=== PATIENT | female | born 1985 | race Caucasian/White ===

== ENCOUNTER 2017-09-23 17:29 | Emergency (ER) | payer OTHER ==
[~2017-09-23 17:29] MED LIST: Z.0.NO CURRENT MEDS
--- NOTE | 2017-09-23 19:37 | PD ---
HPI Chief Complaint Vaginal bleeding Date Seen: Sep 23, 2017 Time Seen: 18:25 Travel History International Travel<30 Days: No Contact w/Intl Traveler<30Days: No Known Affected Area: No History of Present Illness HPI This patient is a 32-year-old white female previous 2 now at 29 weeks gestation presents with recurrent vaginal bleeding. Patient noted red bleeding today less than a period . She has had this happen past and had an ultrasound that showed some was not in the way was there is no obvious cause . heart rate tracing is reactive and she is not ginger Weeks Gestation: 29 Para: 2 : 3 Last Menstrual Period: Sep 23, 2017 History Obstetric History Obstetric History Patient had 2 C-sections term with breech and the second section was just done because she had a previous , patient is motivated like to try a and this was discussed with pt Past Surgical History Narrative Surgical 2 C-sections Social History Alcohol Use: No Tobacco Use: No Substance Abuse: No Allergies-Medications (Allergen,Severity, Reaction): Coded Allergies: Sulfa (Sulfonamide Antibiotics) (Unverified Allergy, Severe, 02/24/17) Home Meds Reported Medications Miscellaneous (No Current Meds) Misc 03/28/12 Review of Systems General / Constitutional: No: Fever, Weight Gain, Chills, Other Eyes: No: Diploplia, Blurred Vision, Visual changes, Pain, Photophobia HENT: No: Headaches, Vertigo, Lightheadedness Cardiovascular: No: Irregular Rhythm, Chest Pain or Discomfort, Palpitations, Tachycardia, Syncope, Varicosities, Edema, Cyanosis Respiratory: No: Cough, Short of Breath, Other Gastrointestinal: No: Nausea, Vomiting, Diarrhea Genitourinary: Vaginal Bleeding, No: Decreased Urinary Output, Oliguria Musculoskeletal: No: Limited ROM, Weakness, Cramping, Edema, Pain Skin: No Rash, No Itching, No Dryness, No Lumps, No Change in Pigmentation, No Change in Nails, No Alopecia, No Lesions Neurologic: No: Weakness, Dizziness, Syncope, Focal Abnormalities, Coordination Problem, Headache, Slurred Speech, Seizures Psychiatric: No: Depression, Suicidal Ideations, Homicidal Ideation Endocrine: No: Heat Intolerance, Cold Intolerance, Polydipsia, Polyuria, Other Physical Exam Narrative GENERAL: Well-nourished, well-developed patient. SKIN: Warm and dry. HEAD: Normocephalic and atraumatic. EYES: No scleral icterus. No injection or drainage. ENT: No nasal drainage noted. Mucous membranes pink. Airway patent. NECK: Supple, trachea midline. No JVD. CARDIOVASCULAR: Regular rate and rhythm without murmurs, gallops, or rubs. RESPIRATORY: Breath sounds equal bilaterally. No accessory muscle use. BREASTS: Bilateral exam showed no masses , no retractions, no nipple discharge. ABDOMEN/GI: Abdomen soft, non-tender, bowel sounds present, no rebound, no guarding Gravid to [-29] weeks size Fundal Height: [29-] GENITOURINARY: External Genitalia: intact and normal in appearance Speculum exam done-no active bleeding seen no red blood seen however there is a moderate amount of old brown blood in the vagina Cervix: [-closed] Dilatation: [closed-] Effacement: [thick-] Station: [-3] Presentation: [transverse back down see on US -] Membranes: [intact ] Uterine Contractions: [-none] FHT's: Category: [-1] Baseline: [-133] Reactive: [-R] Variability: [mod-] Decels: [none-] EXTREMITIES: No cyanosis or edema. BACK: Nontender without obvious deformity. No CVA tenderness. NEUROLOGICAL: Awake and alert. Motor and sensory grossly within normal limits. Five out of 5 muscle strength in all muscle groups. Normal speech. Data Data Labs Bedside ultrasound was done- placenta is on the right lateral side of the uterus is not a placenta previa , baby is in a back down transverse lie to the maternal right , there is normal amniotic fluid volume, normal cardiac motion MDM Interpretation(s) 32-year-old white female 29 weeks 3 P2 previous section 2 would like to this baby if possible., Who presents with vaginal bleeding recurrent, she does not have a lot of bleeding when she has episodes that it is a little less than a menstrual flow starts red in terms to brown old blood, ultrasound ruled out previa several times, no obvious abruption signs exist, heart rate tracing is reactive baby is active , there are no contractions Plan Plan for patient to be at bed rest while having any significant bleeding, to return to us for significant increase in bleeding or continued vaginal bleeding. , She is to avoid intercourse at this time she had intercourse 2 days ago started bleeding shortly after so we recommend her not having IC,. she is to initiate care here at this time she just relocated from [place] [facility] there is good to be getting her records sent down here so she can, she was [facility] Diagnosis Diagnosis: Primary Impression: Vaginal bleeding during Disposition: 01 DISCHARGE HOME Condition: Stable Brandon Fritz II, MD Sep 23, 2017 19:37
== END 2017-09-23 19:42 | disposition home or self-care (01) ==
LOC: HOBED 17:29
DX: O46.92 Antepartum hemorrhage, unspecified, second trimester (principal); Z3A.29 29 weeks gestation of pregnancy; Z88.2 Allergy status to sulfonamides
CPT/HCPCS: 76815

== ENCOUNTER → 2017-10-01 | Outpatient (CLI) | payer OTHER | LOC: HPND 08:51 | PROVIDERS: ATTEND Obstetrics & Gynecology | DX: O09.33 Supervision of pregnancy with insufficient antenatal care, third trimester (principal); O36.5130 Maternal care for known or suspected placental insufficiency, third trimester, not applicable or unspecified; O46.8X3 Other antepartum hemorrhage, third trimester | CPT/HCPCS: 76816 ==

== ENCOUNTER 2017-10-21 07:37 | Inpatient (IN) | payer MEDICAID ==
[2017-10-21] VITALS (17 sets, daily range): BP systolic 121–150; BP diastolic 70–90; PULSE 75–101; RESP 16–18; TEMP 97.8–98.6; O2SAT 100
[~2017-10-21] VITALS: Ht 175.3 cm; Wt 105.0 kg
--- NOTE | 2017-10-21 08:51 | PD ---
HPI Chief Complaint vaginal bleeding Date Seen: Oct 21, 2017 Time Seen: 08:20 (John Yoon MD R1) Travel History International Travel<30 Days: No Contact w/Intl Traveler<30Days: No Known Affected Area: No (John Yoon MD R1) History of Present Illness HPI Ms Tomlinson is a 32YO at 33/[address] Stacy who presents with vaginal bleeding this morning and reports decreased movement. Pt notes she woke up about 6AM with a large spot of blood on her bed about 6 inches in diameter with fresh blood. Bleeding assessed as about the same as soaking a pad. There was one clot about the size of a quarter. Pt did not feel movement when she awoke, but now on exam is feeling good movement. Bleeding continued when she went to the bathroom and she came in and is wearing a pad now but has not needed to change it yet. Pt is known to have a bicornate uterus and reported to the OB ED here about 2 weeks ago with a minor bleed that stopped spontaneously. Pt gets OB diagnostic US with MFM at [facility] every other week due to her bicornate uterus and delayed growth in fetus and has her next appt on 10/27. Pt indicates she also has normal vaginal discharge, but denies, dizziness, cp, sob, n/v/d. Weeks Gestation: 33 Para: 2 : 4 Miscarriage: 1 (first in 2007) (John Yoon MD R1) History Past Medical History Medical History: Denies Significant Hx (John Yoon MD R1) Obstetric History Obstetric History Pt had spontaneous miscarriage first in 2007 Next two pregnancies required C/S deliveries Pt has bicornate uterus Reports no bleeding in other pregnancies (John Yoon MD R1) Past Surgical History Narrative Surgical 2 C/S (John Yoon MD R1) Family History Family History: Negative (John Yoon MD R1) Social History Alcohol Use: No Tobacco Use: No Substance Abuse: No (John Yoon MD R1) Allergies-Medications (Allergen,Severity, Reaction): Coded Allergies: Sulfa (Sulfonamide Antibiotics) (Unverified Allergy, Unknown, unknown reaction, 10/21/17) Home Meds Reported Medications Miscellaneous (No Current Meds) [facility] 03/28/12 Narrative Medication Takes PNV (John Yoon MD R1) Review of Systems General / Constitutional: No: Fever, Chills Eyes: No: Visual changes HENT: No: Headaches Cardiovascular: No: Chest Pain or Discomfort, Palpitations Respiratory: No: Short of Breath Gastrointestinal: No: Nausea, Vomiting, Diarrhea, Abdominal Pain, Constipation Genitourinary: Discharge, Vaginal Bleeding, No: Dysuria, Pelvic Pain Musculoskeletal: No: Limited ROM, Cramping, Edema, Pain Skin: No Rash (John Yoon MD R1) Physical Exam T 97.8 / HR 101 / 141/77 / RR16 Narrative GENERAL: Well-nourished, well-developed patient in NAD. SKIN: Warm and dry. No rashes or lesions. HEAD: Normocephalic and atraumatic. EYES: No scleral icterus. No injection or drainage. EOMI. ENT: No nasal drainage noted. Mucous membranes pink. Airway patent. NECK: Supple, trachea midline. No JVD. CARDIOVASCULAR: Regular rate and rhythm without murmurs, gallops, or rubs. RESPIRATORY: Breath sounds equal bilaterally. No accessory muscle use. ABDOMEN/GI: Abdomen soft, non-tender, bowel sounds present, no rebound, no guarding Gravid to 30] weeks size GENITOURINARY: External Genitalia: intact and normal in appearance Cervix: closede Dilatation: [-] Effacement: [-] Station: [-] Presentation: [-] Membranes: intact Uterine Contractions: absent FHT's: Category: 2 Baseline: 140 Reactive: yes Variability: moderate Decels: several variable decels EXTREMITIES: No cyanosis or edema. BACK: Nontender without obvious deformity. NEUROLOGICAL: Awake and alert. Motor and sensory grossly within normal limits. Five out of 5 muscle strength in all muscle groups. Normal speech. (John Yoon MD R1) Data Data Vital Signs Reviewed: Yes Orders Orders Vital Signs (Adult) .ON ADMISSION (10/21/17 08:40) ^ Labor Status (10/21/17 08:40) ^ Non Stress Test (10/21/17 08:40) ^ Hydration (10/21/17 08:40) (John Yoon MD R1) MDM Medical Record Reviewed: Yes Narrative Course / MDM 32YO at 33/4 weeks presents with vaginal bleeding antepartum likely due to bicornate uterus and decreased movement. FHT with BL 140, reactive, moderate, and several variable decels 1. IUP -Monitor and toco -Encourage hydration 2. Vaginal bleeding -NST -OB US w/BPP 3. Decreased movement; pt notes increased movement on exam -FHT with BL 140, reactive, moderate, and several variable decels -BPP OB US ordered -CBC, coags, d-dimer, fibrinogen -Admit 22 hour OBS Pt seen w/Dr Marizol Wood and dw Dr Ayala (John Yoon MD R1) Diagnosis Diagnosis: Primary Impression: Vaginal bleeding during , antepartum Additional Impressions: Bicornate uterus complicating Decreased movement affecting management of mother, antepartum Collaborating MD Comments Patient seen and examined. Cervix is closed. H/o bicornuate uterus with intermittent vaginal bleeding this , heavier today. Exam noted small amount of bright red bleeding from vagina, no active bleeding. Some bleeding at home and on pad here. Plan 23 observation with possible steroids, BPP today. No signs of abruption at this time. (Caroline Ayala MD) John Yoon MD R1 Oct 21, 2017 08:51 Caroline Ayala MD Oct 21, 2017 09:31
[2017-10-21] MEDS ORDERED: SODIUM CHLORIDE 0.9% FLUSH 10 ML FLUSH IV FLUSH PRN ×2 (09:15→16:30)
[2017-10-21] MEDS ORDERED: SODIUM CHLORIDE 0.9% FLUSH 10 ML FLUSH IV FLUSH SCH (09:15)
[2017-10-21] MEDS ORDERED: BETAMETHASONE SOD PHOS/ACETATE SUSP 30 MG/5 ML VIAL IM SCH (09:15)
[2017-10-21] MEDS ORDERED: ONDANSETRON HCL 4 MG/2 ML VIAL IV PUSH PRN ×2 (09:15→16:30)
[2017-10-21] MEDS: LACTATED RINGER'S 1000 ML INJ 1,000 ML IV SCH ×2 (09:17→14:33)
[2017-10-21 09:48] LABS: AUTOMATED NEUTROPHIL # 8.3 TH/MM3 (1.8-7.7); BASOPHIL # 0.1 TH/MM3 (0-0.2); BASOPHIL % 0.7 % (0.0-2.0); EOSINOPHIL # 0.1 TH/MM3 (0-0.4); EOSINOPHIL % 0.5 % (0.0-4.0); HEMATOCRIT 35.8 % (35.0-46.0); HEMOGLOBIN 11.9 GM/DL (11.6-15.3); LYMPH % 14.9 % (9.0-44.0); LYMPHOCYTE # 1.6 TH/MM3 (1.0-4.8); MEAN CELL VOLUME 78.2 FL (80.0-100.0); MEAN CORPUSCULAR HGB CONC 33.3 % (32.0-36.0); MEAN PLATELET VOLUME 9.4 FL (7.0-11.0); MONOCYTE # 0.6 TH/MM3 (0-0.9); NEUT % 77.9 % (16.0-70.0); PLATELET COUNT 243 TH/MM3 (150-450); RED BLOOD COUNT 4.57 MIL/MM3 (4.00-5.30); WHITE BLOOD COUNT 10.7 TH/MM3 (4.0-11.0)
[2017-10-21 09:58] LABS: BACTERIA, URINE RARE /hpf; BILIRUBIN, URINE NEG (NEG); BLOOD, URINE LARGE (NEG); GLUCOSE,URINE NEG (NEG); KETONE, URINE NEG (NEG); MUCUS URINE FEW /lpf (OCC); NITRITE,URINE NEG (NEG); PH, URINE 6.5 (5.0-8.5); SQUAMOUS EPITHELIAL CELL URINE 4 /hpf (0-5); URINE COLOR YELLOW (YELLW/STRAW); URINE LEUKOCYTE ESTERASE NEG (NEG)
[2017-10-21 10:07] LABS: D-DIMER 2.71 MG/L FEU (0.00-0.50); PROTHROMBIN TIME - PATIENT 9.8 SEC (9.8-11.6)
--- NOTE | 2017-10-21 11:17 | HHI.HP ---
HPI Chief Complaint labor, Vaginal Delivery Date Seen: Oct 21, 2017 Travel History International Travel<30 Days: No Contact w/Intl Traveler<30Days: No History of Present Illness HPI Ms Tomlinson is a 32YO at 33/[address] Stacy who presents with vaginal bleeding this morning and reports decreased movement. Pt notes she woke up about 6AM with a large spot of blood on her bed about 6 inches in diameter with fresh blood. Bleeding assessed as about the same as soaking a pad. There was one clot about the size of a quarter. Pt did not feel movement when she awoke, but now on exam is feeling good movement. Bleeding continued when she went to the bathroom and she came in and is wearing a pad now but has not needed to change it yet. Pt is known to have a bicornate uterus and reported to the OB ED here about 2 weeks ago with a minor bleed that stopped spontaneously. Pt gets OB diagnostic US with MFM at [facility] every other week due to her bicornate uterus and delayed growth in fetus and has her next appt on 10/27. Pt indicates she also has normal vaginal discharge, but denies, dizziness, cp, sob, n/v/d. Weeks Gestation: 33 Para: 2 : 4 Miscarriage: 1 History Past Medical History Medical History: Denies Significant Hx Obstetric History Obstetric History Pt had spontaneous miscarriage first in 2007 Next two pregnancies required C/S deliveries Pt has bicornate uterus Reports no bleeding in other pregnancies JOVAN-A low, on aspirin 81mg at home Past Surgical History Narrative Surgical CS x 2 Family History Family History: Negative Social History Alcohol Use: No Tobacco Use: No Substance Abuse: No Allergies-Medications (Allergen,Severity, Reaction): Coded Allergies: Sulfa (Sulfonamide Antibiotics) (Unverified Allergy, Unknown, unknown reaction, 10/21/17) Home Meds Reported Medications Miscellaneous (No Current Meds) [facility] [place] Review of Systems General / Constitutional: No: Fever, Chills Eyes: No: Diploplia, Blurred Vision HENT: No: Headaches, Vertigo Cardiovascular: No: Irregular Rhythm, Chest Pain or Discomfort Respiratory: No: Cough, Short of Breath Gastrointestinal: No: Nausea, Vomiting, Diarrhea, Abdominal Pain Genitourinary: Vaginal Bleeding, No: Dysuria Musculoskeletal: No: Weakness, Edema Skin: No Rash, No Itching Neurologic: No: Weakness, Syncope Psychiatric: No: Anxiety, Depression Physical Exam Vital Signs Date Time Temp Pulse Resp B/P (MAP) Pulse Ox O2 Delivery O2 Flow Rate FiO2 10/21/17 08:59 82 123/71 (88) 10/21/17 08:00 97.8 16 10/21/17 07:52 101 141/77 (98) Narrative T 97.8 / HR 101 / 141/77 / RR16 GENERAL: Well-nourished, well-developed patient in NAD. SKIN: Warm and dry. No rashes or lesions. HEAD: Normocephalic and atraumatic. EYES: No scleral icterus. No injection or drainage. EOMI. ENT: No nasal drainage noted. Mucous membranes pink. Airway patent. NECK: Supple, trachea midline. No JVD. CARDIOVASCULAR: Regular rate and rhythm without murmurs, gallops, or rubs. RESPIRATORY: Breath sounds equal bilaterally. No accessory muscle use. ABDOMEN/GI: Abdomen soft, non-tender, bowel sounds present, no rebound, no guarding Gravid to 30] weeks size GENITOURINARY: External Genitalia: intact and normal in appearance. Gross vaginal bleeding, active bright red blood noted Cervix: closed Membranes: intact Uterine Contractions: absent FHT's: Category: 2 Baseline: 140 Reactive: yes Variability: moderate Decels: several variable decels EXTREMITIES: No cyanosis or edema. BACK: Nontender without obvious deformity. NEUROLOGICAL: Awake and alert. Motor and sensory grossly within normal limits. Five out of 5 muscle strength in all muscle groups. Normal speech. Caprini VTE Risk Assessment Caprini VTE Risk Assessment: Mod/High Risk (score >= 2) VTE Pharm Contraindication: Active bleeding Caprini Risk Assessment Model Point Value = 1 Point Value = 2 Point Value = 3 Point Value = 5 Age 41-60 Minor surgery BMI > 25 kg/m2 Swollen legs Varicose veins or History of unexplained or recurrent spontaneous Oral contraceptives or hormone replacement Sepsis (< 1 month) Serious lung disease, including pneumonia (< 1 month) Abnormal pulmonary function Acute myocardial infarction Congestive heart failure (< 1 month) History of inflammatory bowel disease Medical patient at bed rest Age 61-74 Arthroscopic surgery Major open surgery (> 45 min) Laparoscopic surgery (> 45 min) Malignancy Confined to bed (> 72 hours) Immobilizing plaster cast Central venous access Age >= 75 History of VTE Family history of VTE Factor V Leiden Prothrombin [id number] Lupus anticoagulant Anticardiolipin antibodies Elevated serum homocysteine Heparin-induced thrombocytopenia Other congenital or acquired thrombophilia Stroke (< 1 month) Elective arthroplasty Hip, pelvis, or leg fracture Acute spinal cord injury (< 1 month) Prophylaxis Regimen Total Risk Factor Score Risk Level Prophylaxis Regimen 0-1 Low Early ambulation 2 Moderate Order ONE of the following: *Sequential Compression Device (SCD) *Heparin 5000 units SQ BID 3-4 Higher Order ONE of the following medications: *Heparin 5000 units SQ TID *Enoxaparin/Lovenox 40 mg SQ daily (WT < 150 kg, CrCl > 30 mL/min) *Enoxaparin/Lovenox 30 mg SQ daily (WT < 150 kg, CrCl > 10-29 mL/min) *Enoxaparin/Lovenox 30 mg SQ BID (WT < 150 kg, CrCl > 30 mL/min) AND/OR *Sequential Compression Device (SCD) 5 or more Highest Order ONE of the following medications: *Heparin 5000 units SQ TID (Preferred with Epidurals) *Enoxaparin/Lovenox 40 mg SQ daily (WT < 150 kg, CrCl > 30 mL/min) *Enoxaparin/Lovenox 30 mg SQ daily (WT < 150 kg, CrCl > 10-29 mL/min) *Enoxaparin/Lovenox 30 mg SQ BID (WT < 150 kg, CrCl > 30 mL/min) AND *Sequential Compression Device (SCD) Data Data Vital Signs Reviewed: Yes Orders Orders Vital Signs (Adult) .ON ADMISSION (10/21/17 08:40) ^ Labor Status (10/21/17 08:40) ^ Non Stress Test (10/21/17 08:40) ^ Hydration (10/21/17 08:40) Ob (2e) Additional Admit Info (10/21/17 09:10) Place In Observation (10/21/17 ) Diet Npo (10/21/17 Breakfast) Vital Signs (Adult) [id number] AWAKE (10/21/17 09:10) Heart (10/21/17 09:10) Activity Bed Rest (10/21/17 09:10) Sodium Chloride 0.9% Flush (Ns Flush) (10/21/17 09:15) Sodium Chloride 0.9% Flush (Ns Flush) (10/21/17 09:15) Ondansetron Inj (Zofran Inj) (10/21/17 09:15) Betamethasone Inj (Celestone Soluspan In (10/21/17 09:15) Complete Blood Count With Diff (10/21/17 09:10) Hold Clot (10/21/17 09:10) Abo/Rh Blood Type (10/21/17 09:10) Urinalysis - C+S If Indicated (10/21/17 09:10) Ob/Psych Drug Screen, Urine (10/21/17 09:10) Act Partial Throm Time (Ptt) (10/21/17 09:10) Prothrombin Time / Inr (Pt) (10/21/17 09:10) Fibrinogen (10/21/17 09:10) D-Dimer (10/21/17 09:10) Lactated Ringer's 1000 Ml Inj (Lr 1000 M (10/21/17 09:17) Us Ob Transvaginal (10/21/17 ) Us Ob Bpp Wo Nst Ua/Mca Dp Rpt (10/21/17 08:47) Labs Laboratory Tests Test 10/21/17 09:15 White Blood Count 10.7 Red Blood Count 4.57 Hemoglobin 11.9 Hematocrit 35.8 Mean Corpuscular Volume 78.2 Mean Corpuscular Hemoglobin 26.0 Mean Corpuscular Hemoglobin Concent 33.3 Red Cell Distribution Width 19.0 Platelet Count 243 Mean Platelet Volume 9.4 Neutrophils (%) (Auto) 77.9 Lymphocytes (%) (Auto) 14.9 Monocytes (%) (Auto) 6.0 Eosinophils (%) (Auto) 0.5 Basophils (%) (Auto) 0.7 Neutrophils # (Auto) 8.3 Lymphocytes # (Auto) 1.6 Monocytes # (Auto) 0.6 Eosinophils # (Auto) 0.1 Basophils # (Auto) 0.1 CBC Comment DIFF FINAL Differential Comment Prothrombin Time 9.8 Prothromb Time International Ratio 1.0 Activated Partial Thromboplast Time 26.6 Fibrinogen 464 D-Dimer Quantitative (PE/DVT) 2.71 Urine Color YELLOW Urine Turbidity HAZY Urine pH 6.5 Urine Specific [place] 1.017 Urine Protein TRACE Urine Glucose (UA) NEG Urine Ketones NEG Urine Occult Blood LARGE Urine Nitrite NEG Urine Bilirubin NEG Urine Urobilinogen LESS THAN 2.0 Urine Leukocyte Esterase NEG Urine RBC Urine WBC 3 Urine Squamous Epithelial Cells 4 Urine Bacteria RARE Urine Mucus FEW Microscopic Urinalysis Comment CULT NOT INDICATED Urine Opiates Screen NEG Urine Barbiturates Screen NEG Urine Amphetamines Screen NEG Urine Benzodiazepines Screen NEG Urine Cocaine Screen NEG Urine Cannabinoids Screen NEG Assessment/Plan Problem List: (1) Placental abruption in third trimester ICD Codes: O45.93 - Premature separation of placenta, unspecified, third trimester (2) Bicornate uterus complicating ICD Codes: O34.00 - Maternal care for unspecified congenital malformation of uterus, unspecified trimester; Q51.3 - Bicornate uterus Status: Acute (3) Vaginal bleeding during , antepartum ICD Codes: O46.90 - Antepartum hemorrhage, unspecified, unspecified trimester Status: Acute Assessment and Plan 32YO at 33/4 weeks presents with vaginal bleeding antepartum, active. Hemodynamically stable. Has bicornuate uterus with intermittent vaginal bleeding this , heavier today. US today showing placental abruption, posterior. Placental Abruption -Large clot posterior, will likely continue to having vaginal bleeding -IVF: LR @ 100, bolus if hemodynamics change (currently stable)\ -Monitor VS q4hr -CBC, Coags, D dimer -Monitor bleeding with pad counts, if continues with -Betamethasone 12mg IM x 1 now, repeat in 24hr if vaginal bleeding ceases -Dr. Fritz at bedside, discussed plan of care with patient, to include section IUP, Alaniz -Continuous toco -Cervix closed - Maternal labs have noted low JOVAN-A requiring mother to take aspirin for ppx. -OB US on 10/01 noted a subchorionic hematoma. Discharge Planning Unclear Briseida Wood MD R2 Oct 21, 2017 11:17
[2017-10-21] MEDS ORDERED: LACTATED RINGER'S 1000 ML INJ 2,000 ML IV ONE (12:00)
[2017-10-21] MEDS ORDERED: ePHEDrine/NS 25 MG/5 ML SYRINGE IV ONE (12:00)
[2017-10-21] MEDS ORDERED: ONDANSETRON HCL 4 MG/2 ML VIAL IV ONE (12:00)
[2017-10-21] MEDS ORDERED: OXYTOCIN 10 UNIT/ML AMP IV ONE (12:00)
[2017-10-21] MEDS ORDERED: ceFAZolin INJ 1,000 MG VIAL IV ONE (12:00)
--- NOTE | 2017-10-21 14:07 | HHI.PR ---
Addendum to Inpatient Note Addendum Reason: Additional Documentation Additional Information Patient seen and examined at bedside. Pad counts ordered and patient has soaked through a pad in the last hour, bright red. No contractions or pain. Strip: Cat 2 at this time, FHR 150s, small variables noted but intermittent. No accels CTX: absent Repeat H&H ordered Notably, admission labs Dr. 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 Lam Wood,Briseida Reed MD R2 Oct 21, 2017 14:07
[2017-10-21] MEDS ORDERED: CITRIC ACID-SODIUM CITRATE LIQ 30 ML UDC ONE (14:25)
[2017-10-21] MEDS ORDERED: MORPHINE SULFATE PF 5 MG/10 ML VIAL ONE (14:57)
[2017-10-21] MEDS ORDERED: ACETAMINOPHEN 1000 MG/100 ML 100 ML IV ONE (14:57)
[2017-10-21] MEDS ORDERED: EPIDURAL-DIPHENHYDRAMINE HCL 50 MG CAP PO PRN (15:08)
[2017-10-21] MEDS ORDERED: EPIDURAL-NALOXONE HCL 0.4 MG/ML AMP IV PUSH PRN (15:08)
[2017-10-21] MEDS ORDERED: EPIDURAL-DIPHENHYDRAMINE HCL 50 MG/ML VIAL IV PUSH PRN (15:08)
[2017-10-21] MEDS ORDERED: EPIDURAL-DO NOT ADMINISTER ANTICOAGULANTS PRN (15:08)
[2017-10-21] MEDS ORDERED: EPIDURAL-NO SYSTEMIC NARCOTICS PRN (15:08)
[2017-10-21] MEDS ORDERED: LACTATED RINGER'S 1000 ML INJ 1,000 ML IV ONE (15:10)
[2017-10-21] MEDS ORDERED: ceFAZolin 2 GM in NS 100 ML IV SCH (15:30)
[2017-10-21 15:39] LABS: HEMATOCRIT 34.6 % (35.0-46.0); HEMOGLOBIN 11.5 GM/DL (11.6-15.3)
[2017-10-21] MEDS ORDERED: LACTATED RINGER'S 1000 ML INJ 1,000 ML IV SCH ×2 (15:40→21:26)
[2017-10-21] MEDS ORDERED: ceFAZolin 2 GM PREMIX 50 ML IV SCH (16:15)
[2017-10-21] MEDS ORDERED: OXYTOCIN 30 UNITS-500ML PREMIX 500 ML IV ONE (16:30)
[2017-10-21] MEDS ORDERED: ZOLPIDEM TARTRATE 5 MG TAB PO PRN (16:30)
[2017-10-21] MEDS ORDERED: ACETAMINOPHEN 325 MG TAB PO PRN (16:30)
[2017-10-21] MEDS ORDERED: oxyCODONE/ACETAMINOPHEN 5 MG/325 MG TAB PO PRN (16:30)
--- NOTE | 2017-10-21 16:33 | HHI.PCNN ---
HPI Weight/Length/Head Circumferen Labs & Micro Results Laboratory Tests Test 10/21/17 09:15 10/21/17 15:03 10/21/17 16:12 White Blood Count 10.7 TH/MM3 Red Blood Count 4.57 MIL/MM3 Hemoglobin 11.9 GM/DL 11.5 GM/DL Hematocrit 35.8 % 34.6 % Mean Corpuscular Volume 78.2 FL Mean Corpuscular Hemoglobin 26.0 PG Mean Corpuscular Hemoglobin Concent 33.3 % Red Cell Distribution Width 19.0 % Platelet Count 243 TH/MM3 Mean Platelet Volume 9.4 FL Neutrophils (%) (Auto) 77.9 % Lymphocytes (%) (Auto) 14.9 % Monocytes (%) (Auto) 6.0 % Eosinophils (%) (Auto) 0.5 % Basophils (%) (Auto) 0.7 % Neutrophils # (Auto) 8.3 TH/MM3 Lymphocytes # (Auto) 1.6 TH/MM3 Monocytes # (Auto) 0.6 TH/MM3 Eosinophils # (Auto) 0.1 TH/MM3 Basophils # (Auto) 0.1 TH/MM3 CBC Comment DIFF FINAL Differential Comment Prothrombin Time 9.8 SEC Prothromb Time International Ratio 1.0 RATIO Activated Partial Thromboplast Time 26.6 SEC Fibrinogen 464 mg/dL D-Dimer Quantitative (PE/DVT) 2.71 MG/L FEU Urine Color YELLOW Urine Turbidity HAZY Urine pH 6.5 Urine Specific [place] 1.017 Urine Protein TRACE mg/dL Urine Glucose (UA) NEG mg/dL Urine Ketones NEG mg/dL Urine Occult Blood LARGE Urine Nitrite NEG Urine Bilirubin NEG Urine Urobilinogen LESS THAN 2.0 MG/DL Urine Leukocyte Esterase NEG Urine RBC /hpf Urine WBC 3 /hpf Urine Squamous Epithelial Cells 4 /hpf Urine Bacteria RARE /hpf Urine Mucus FEW /lpf Microscopic Urinalysis Comment CULT NOT INDICATED Urine Opiates Screen NEG Urine Barbiturates Screen NEG Urine Amphetamines Screen NEG Urine Benzodiazepines Screen NEG Urine Cocaine Screen NEG Urine Cannabinoids Screen NEG Blood Gas Puncture Site CORD BLOOD Blood Gas Base Excess -1.4 mmol/L Blood Gas Oxygen Saturation 28 % Cord Blood HCO3 24 mmol/L Cord Arterial Blood pH 7.29 Cord Arterial Blood PCO2 53 mmHG Cord Arterial Blood PO2 18 mmHG Medications Current Medications Current Medications Medications (Trade) Dose Ordered Sig/Miki Route Start Time Stop Time Status Last Admin Lactated Ringer's 1,000 ml @ 100 mls/hr Q10H IV 10/21/17 21:26 10/22/17 17:25 UNV Oxytocin 500 ml @ 100 mls/hr ONCE ONCE IV 10/21/17 16:30 10/21/17 21:29 UNV Oxytocin 500 ml @ 100 mls/hr UNSCH X1 PRN IV 10/21/17 21:30 10/22/17 21:29 UNV (NS Flush) 2 ml BID IV FLUSH 10/21/17 21:00 UNV (NS Flush) 2 ml UNSCH PRN IV FLUSH 10/21/17 16:30 UNV (Mylicon Chew) 80 mg QID PRN PO 10/21/17 16:30 UNV (Tylenol) 650 mg Q6H PRN PO 10/21/17 16:30 UNV (Motrin) 600 mg Q6H PRN PO 10/21/17 16:30 UNV (Percocet 5-325 Mg) 1 tab Q4H PRN PO 10/21/17 16:30 UNV (Percocet 5-325 Mg) 2 tab Q4H PRN PO 10/21/17 16:30 UNV Cefazolin Sodium 2000 mg/Sodium Chloride 120 ml @ 100 mls/hr Q8H IV 10/21/17 16:30 10/22/17 01:41 UNV (Cora-Colace) 2 tab Q12H PRN PO 10/21/17 16:30 UNV (Ambien) 5 mg HS PRN PO 10/21/17 16:30 UNV (M-M-R Ii Inj) 0.5 ml ONCE ONCE SQ 10/22/17 16:00 10/22/17 16:01 UNV (Boostrix Inj) 0.5 ml ONCE ONCE IM 10/22/17 16:00 10/22/17 16:01 UNV (Zofran Inj) 4 mg Q6H PRN IV PUSH 10/21/17 16:30 UNV Maternal/Delivery/Infant Info Maternal Information Weeks Gestation: 33 Antepartum Risk Factors: Other Maternal Risk Factors Other: Abruption Other Maternal Labs: Maternal Information Administered Medications Medications Dose Ordered Sig/Miki Start Time Stop Time Status Last Admin Sodium Chloride 2 ml BID 10/21/17 09:15 10/21/17 16:26 DC 10/21/17 09:26 Betamethasone Acet/Betameth SodPhos 12 mg Q24H 10/21/17 09:15 10/21/17 16:26 DC 10/21/17 00:15 Lactated Ringer's 1,000 ml @ 100 mls/hr Q10H 10/21/17 09:17 10/21/17 16:26 DC 10/21/17 14:33 Citric Acid/ Sodium Citrate 30 ml STK-MED ONCE 10/21/17 14:25 10/21/17 16:26 DC 10/21/17 14:55 Lab - last results Laboratory Tests Test 10/21/17 09:15 10/21/17 15:03 10/21/17 16:12 White Blood Count 10.7 TH/MM3 Red Blood Count 4.57 MIL/MM3 Mean Corpuscular Volume 78.2 FL Mean Corpuscular Hemoglobin 26.0 PG Mean Corpuscular Hemoglobin Concent 33.3 % Red Cell Distribution Width 19.0 % Platelet Count 243 TH/MM3 Mean Platelet Volume 9.4 FL Neutrophils (%) (Auto) 77.9 % Lymphocytes (%) (Auto) 14.9 % Monocytes (%) (Auto) 6.0 % Eosinophils (%) (Auto) 0.5 % Basophils (%) (Auto) 0.7 % Neutrophils # (Auto) 8.3 TH/MM3 Lymphocytes # (Auto) 1.6 TH/MM3 Monocytes # (Auto) 0.6 TH/MM3 Eosinophils # (Auto) 0.1 TH/MM3 Basophils # (Auto) 0.1 TH/MM3 CBC Comment DIFF FINAL Differential Comment Prothrombin Time 9.8 SEC Prothromb Time International Ratio 1.0 RATIO Activated Partial Thromboplast Time 26.6 SEC Fibrinogen 464 mg/dL D-Dimer Quantitative (PE/DVT) 2.71 MG/L FEU Urine Color YELLOW Urine Turbidity HAZY Urine pH 6.5 Urine Specific [place] 1.017 Urine Protein TRACE mg/dL Urine Glucose (UA) NEG mg/dL Urine Ketones NEG mg/dL Urine Occult Blood LARGE Urine Nitrite NEG Urine Bilirubin NEG Urine Urobilinogen LESS THAN 2.0 MG/DL Urine Leukocyte Esterase NEG Urine RBC /hpf Urine WBC 3 /hpf Urine Squamous Epithelial Cells 4 /hpf Urine Bacteria RARE /hpf Urine Mucus FEW /lpf Microscopic Urinalysis Comment CULT NOT INDICATED Urine Opiates Screen NEG Urine Barbiturates Screen NEG Urine Amphetamines Screen NEG Urine Benzodiazepines Screen NEG Urine Cocaine Screen NEG Urine Cannabinoids Screen NEG Hemoglobin 11.5 GM/DL Hematocrit 34.6 % Blood Gas Puncture Site CORD BLOOD Blood Gas Base Excess -1.4 mmol/L Blood Gas Oxygen Saturation 28 % Cord Blood HCO3 24 mmol/L Cord Arterial Blood pH 7.29 Cord Arterial Blood PCO2 53 mmHG Cord Arterial Blood PO2 18 mmHG Peggy Brown Oct 21, 2017 16:33
[2017-10-21] MEDS ORDERED: KETOROLAC TROMETHAMINE 60 MG/2 ML (IM) VIAL IM PRN (16:45)
[2017-10-21] MEDS ORDERED: CITRIC ACID-SODIUM CITRATE LIQ 30 ML UDC PO SCH (16:45)
[2017-10-21] MEDS ORDERED: diphenhydrAMINE HCL 50 MG/ML VIAL ONE (16:53)
--- NOTE | 2017-10-21 16:58 | MP ---
cc: Brandon Fritz MD DATE OF OPERATION: 10/21/2017 PREOPERATIVE DIAGNOSES: 1. Intrauterine at 33 weeks with placental abruption. 2. Intrauterine growth retardation. 3. Bicornuate uterus. POSTOPERATIVE DIAGNOSES: 1. Intrauterine at 33 weeks with placental abruption. 2. Intrauterine growth retardation. 3. Bicornuate uterus. PROCEDURE PERFORMED: Low vertical section. SURGEON: Brandon Fritz MD SLIP COVER CUTTER: Carmen. ANESTHESIA: Spinal. PREOPERATIVE NOTE: The patient is a 32-year-old white female, G3, P2, previous section x2, who is at 33-1/2 weeks, presents with significant vaginal bleeding. Ultrasound confirms large placental abruption and IUGR on this fetus. The patient was observed clinically to be bleeding more than it was tolerable and so the patient was felt to need transabdominal delivery in the form of repeat . DESCRIPTION OF PROCEDURE: The patient was taken to the operating room and placed in supine position on the operating table. Adequate spinal anesthesia was administered. She was prepped and draped for abdominal surgery. The previous Pfannenstiel incision was reused, the old scar excised out and cast away. The incision was carried to the fascia, the fascia incised laterally and off the rectus muscle. The peritoneal cavity was entered sharply, the incision extended superior and inferiorly and stretched open. I could palpate at that time a bicornuate uterus with the baby in the right-sided horn. The bladder was taken down sharply with placement of bladder blade. A vertical incision was made in the lower uterine segment and carried about 6 cm cephalad with intact membranes noted. The membranes were then ruptured sharply, clear fluid noted. The baby had been breech on ultrasound earlier in the day, but was now cephalic and was delivered from a cephalic presentation, a female , Apgars 8 and 9, delivered at 3:41 p.m. Weight of baby 1820 grams, 4 pounds even. Delayed cord clamping done for at least 45 seconds. Cord blood obtained. Cord gas sent and is pending at time of dictation. The placenta was adherent, but was manually extracted without difficulty. The uterus was exteriorized at that point, cleaned of all remnants of membranes and then the vertical incision was closed in a running layer of 0 chromic, followed by imbricating suture of same. Hemostasis was achieved. The uterus was elevated, examined and noted to have normal fallopian tubes and ovaries. Blood was suctioned from the cul-de-sac and gutters and the uterus replaced in the peritoneal cavity. The rectus muscle reapproximated with stick ties of chromic and Vicryl. The fascia closed in running layer of 0 Vicryl. Subcutaneous tissue was reapproximated with a 3-0 running catgut suture and the skin closed with 3-0 Monocryl subcuticular stitch. Pressure dressing applied. Estimated blood loss was 500 mL. There were no complications. Sponge and needle counts correct x2, and the patient to recovery and baby to NICU in good condition. MD PIPER Adkins/MIKAEL , 04:35 PM , 04:57 PM
[2017-10-21] MEDS: SODIUM CHLORIDE 0.9% FLUSH 10 ML FLUSH IV FLUSH SCH (21:00)
[2017-10-21] MEDS ORDERED: OXYTOCIN 30 UNITS-500ML PREMIX 500 ML IV PRN (21:30)
[2017-10-21] MEDS: CEFAZOLIN INJ 2,000 MG in SODIUM CHLORIDE 0.9% INJ 100 ML IV SCH (23:23)
[2017-10-21] MEDS: KETOROLAC TROMETHAMINE 60 MG/2 ML (IM) VIAL IM PRN (23:50)
[2017-10-22 04:20] VITALS: BP 111/69; PULSE 79; RESP 18; TEMP 98
[2017-10-22] MEDS: CEFAZOLIN INJ 2,000 MG in SODIUM CHLORIDE 0.9% INJ 100 ML IV SCH (07:10)
[2017-10-22 07:31] LABS: AUTOMATED NEUTROPHIL # 13.9 TH/MM3 (1.8-7.7); BASOPHIL % 0.2 % (0.0-2.0); HEMATOCRIT 32.7 % (35.0-46.0); HEMOGLOBIN 10.8 GM/DL (11.6-15.3); LYMPH % 6.4 % (9.0-44.0); MEAN CELL VOLUME 78.4 FL (80.0-100.0); MEAN CORPUSCULAR HGB CONC 33.2 % (32.0-36.0); MEAN PLATELET VOLUME 9.4 FL (7.0-11.0); MONO % 6.5 % (0.0-8.0); NEUT % 86.9 % (16.0-70.0); PLATELET COUNT 227 TH/MM3 (150-450); RED BLOOD COUNT 4.17 MIL/MM3 (4.00-5.30); RED CELL DISTRIBUTION WIDTH 18.7 % (11.6-17.2)
[2017-10-22] MEDS: KETOROLAC TROMETHAMINE 60 MG/2 ML (IM) VIAL IM PRN (07:39)
[2017-10-22 08:00] VITALS: BP 117/72; PULSE 84; RESP 18; TEMP 97.8; O2SAT 98
--- NOTE | 2017-10-22 08:10 | HHI.OB ---
Subjective Post Operative Day: 1 Remarks Postoperative day # 1. AFVSS overnight. Incision not draining. Decreased lochia. Denies dysuria. No breast tenderness. She is feeding the baby via breast. Appetite good. No nausea or vomiting. Landin still in place, to be removed this morning. Denies calf pain or shortness of breath. Otherwise, she is doing well this morning and has no other concerns. Objective Vitals/I&O Vital Signs Date Time Temp Pulse Resp B/P (MAP) Pulse Ox O2 Delivery O2 Flow Rate FiO2 10/22/17 04:20 98.0 79 18 111/69 (83) 10/21/17 23:58 98.3 80 18 122/71 (88) 10/21/17 20:14 98.0 77 18 121/75 (90) 10/21/17 17:45 76 16 135/71 (92) 100 10/21/17 17:30 80 18 136/77 (96) 100 10/21/17 17:15 100 10/21/17 17:15 75 18 133/77 (95) 10/21/17 17:00 18 100 10/21/17 17:00 90 139/82 (101) 10/21/17 16:45 94 18 140/80 (100) 100 10/21/17 16:30 98.0 100 10/21/17 16:30 80 18 128/70 (89) 10/21/17 14:15 18 10/21/17 14:14 91 133/89 (104) 10/21/17 13:53 98 150/90 (110) 10/21/17 12:27 98.6 10/21/17 11:30 18 10/21/17 11:26 88 134/85 (101) 10/21/17 08:59 82 123/71 (88) Intake & Output 10/22/17 10/22/17 07:00 19:00 Output Total 1100 ml Balance -1100 ml Output Urine Total 1100 ml Result Diagram: 10/22/17 0613 Objective Remarks GENERAL: Well-nourished, well-developed patient. CARDIOVASCULAR: Regular rate and rhythm without murmurs, gallops, or rubs. RESPIRATORY: Breath sounds equal bilaterally. No accessory muscle use. ABDOMEN/GI: Abdomen soft, non-tender, bowel sounds present. Incision: Clean, dry and intact. Pressure dressing. Fundus: Firm, non-tender at umbilicus. GENITOURINARY: Light to moderate bleeding. EXTREMITIES: No cyanosis or edema, non-tender, without signs of DVT. Medications and IVs Current Medications Medications (Trade) Dose Ordered Sig/Miki Route Start Time Stop Time Status Last Admin Lactated Ringer's 1,000 ml @ 100 mls/hr Q10H IV 10/21/17 21:26 10/22/17 17:25 10/21/17 23:25 Oxytocin 500 ml @ 100 mls/hr UNSCH X1 PRN IV 10/21/17 21:30 10/22/17 21:29 (NS Flush) 2 ml BID IV FLUSH 10/21/17 21:00 (NS Flush) 2 ml UNSCH PRN IV FLUSH 10/21/17 16:30 (Mylicon Chew) 80 mg QID PRN PO 10/21/17 16:30 (Tylenol) 650 mg Q6H PRN PO 10/21/17 16:30 (Motrin) 600 mg Q6H PRN PO 10/21/17 16:30 (Percocet 5-325 Mg) 1 tab Q4H PRN PO 10/21/17 16:30 (Percocet 5-325 Mg) 2 tab Q4H PRN PO 10/21/17 16:30 Cefazolin Sodium 2000 mg/Sodium Chloride 120 ml @ 100 mls/hr Q8H IV 10/21/17 23:00 10/22/17 08:11 10/22/17 07:10 (Cora-Colace) 2 tab Q12H PRN PO 10/21/17 16:30 (Ambien) 5 mg HS PRN PO 10/21/17 16:30 (M-M-R Ii Inj) 0.5 ml ONCE ONCE SQ 10/22/17 16:00 10/22/17 16:01 (Boostrix Inj) 0.5 ml ONCE ONCE IM 10/22/17 16:00 10/22/17 16:01 (Zofran Inj) 4 mg Q6H PRN IV PUSH 10/21/17 16:30 (Toradol Inj) 30 mg Q6H PRN IM 10/21/17 16:45 10/22/17 23:59 10/22/17 07:39 Miscellaneous Information NO SYSTEMIC NARCOTICS TO BE GIVEN FO... UNSCH PRN .XX 10/21/17 15:08 10/22/17 15:07 (Narcan Inj) 0.4 mg UNSCH PRN IV PUSH 10/21/17 15:08 10/22/17 15:07 (Benadryl Inj) 25 mg Q6H PRN IV PUSH 10/21/17 15:08 10/22/17 15:07 10/21/17 23:24 (Benadryl) 50 mg Q6H PRN PO 10/21/17 15:08 10/22/17 15:07 Miscellaneous Information ALL NURSING DEPARTMENTS UNSCH PRN .XX 10/21/17 15:08 10/22/17 15:07 Assessment/Plan Problem List: (1) Placental abruption in third trimester ICD Codes: O45.93 - Premature separation of placenta, unspecified, third trimester (2) Bicornate uterus complicating ICD Codes: O34.00 - Maternal care for unspecified congenital malformation of uterus, unspecified trimester; Q51.3 - Bicornate uterus Status: Acute (3) Vaginal bleeding during , antepartum ICD Codes: O46.90 - Antepartum hemorrhage, unspecified, unspecified trimester Status: Acute Assessment and Plan 32 y/o female now who is POD # 1 s/p primary CXN complicated by bicornuate uterus, posterior placental abruption and vaginal bleeding. Afebrile. Leukocytosis noted. Care -Continue routine care. -Percocet and Motrin PRN pain. -Encouraged OOB. Advised pelvic rest for 6 wks. Will need a f/u appt. in 1 wk for incision check. -Re: ctrl, she would like to discuss at her visit. -Anticipate discharge in 1-2 days. Placental Abruption -Large clot posterior noted on US 10/21 -CBC, Coags, D dimer: D dimer elevated -Betamethasone 12mg IM x 1 administered AM of 10/21 - section 10/[address] Fritz -H&H 10.8/32.[address] Fritz Discharge Planning Unclear Briseida Wood MD R2 Oct 22, 2017 08:10
[2017-10-22 12:00] VITALS: BP 114/75; PULSE 88; RESP 20; TEMP 98.1; O2SAT 99
[2017-10-22] MEDS ORDERED: MEASLES, MUMPS, RUBELLA VACCINE 0.5 ML VIAL SQ ONE (16:00)
[2017-10-22] MEDS ORDERED: DIPHTH/TETANUS/ACEL PERTUSSIS (BOOSTER) 0.5 ML VIAL/PFS IM ONE (16:00)
[2017-10-22] MEDS: SODIUM CHLORIDE 0.9% FLUSH 10 ML FLUSH IV FLUSH SCH (19:15)
[2017-10-22] MEDS: DOCUSATE SODIUM 50 MG/SENNA 8.6 MG TAB PO PRN (19:30)
[2017-10-22] MEDS: oxyCODONE/ACETAMINOPHEN 5 MG/325 MG TAB PO PRN (19:30)
[2017-10-22] MEDS: IBUPROFEN 600 MG TAB PO PRN (19:30)
[2017-10-22 20:01] VITALS: BP 129/81; PULSE 87; RESP 18; TEMP 98.2
[2017-10-23] MEDS: IBUPROFEN 600 MG TAB PO PRN ×3 (05:11→19:58)
[2017-10-23] MEDS: oxyCODONE/ACETAMINOPHEN 5 MG/325 MG TAB PO PRN ×3 (05:11→19:58)
[2017-10-23] MEDS: SIMETHICONE 80 MG CHEWABLE TAB PO PRN ×3 (05:13→19:58)
[2017-10-23 08:00] VITALS: BP 123/71; PULSE 88; RESP 20; TEMP 98.1
--- NOTE | 2017-10-23 08:03 | HHI.OB ---
Subjective Post Operative Day: 2 Remarks Ms Tomlinson had no acute events overnight. Pain is well controlled on Percocet and Ibuprofen, ambulating w/o dizziness, taking PO, voiding and 1 BM this morning. Lochia is decreasing from yesterday. Pt is and pumping. Plans for her partner to get vasectomy for contraception. VSS. denies CP, SOB, N /V/D, DVT leg pain. No concerns. Objective Vitals/I&O Vital Signs Date Time Temp Pulse Resp B/P (MAP) Pulse Ox O2 Delivery O2 Flow Rate FiO2 10/22/17 20:01 98.2 87 18 129/81 (97) 10/22/17 12:00 98.1 88 20 114/75 (88) 99 10/22/17 08:00 97.8 84 18 117/72 (87) 98 Result Diagram: 10/22/17 0613 Objective Remarks GENERAL: Well-nourished, well-developed patient in NAD lying in bed. CARDIOVASCULAR: Regular rate and rhythm without murmurs, gallops, or rubs. RESPIRATORY: Breath sounds equal bilaterally. No accessory muscle use. No increased WOB. ABDOMEN/GI: Abdomen soft, appropriately tender to palpation, bowel sounds present. No guarding. Incision: Clean, dry and intact. Pressure dressing. Fundus: Firm, non-tender at umbilicus. GENITOURINARY: Light to moderate bleeding. EXTREMITIES: No cyanosis or edema, non-tender, without signs of DVT. Medications and IVs Current Medications Medications (Trade) Dose Ordered Sig/Miki Route Start Time Stop Time Status Last Admin (NS Flush) 2 ml BID IV FLUSH 10/21/17 21:00 (NS Flush) 2 ml UNSCH PRN IV FLUSH 10/21/17 16:30 (Mylicon Chew) 80 mg QID PRN PO 10/21/17 16:30 10/23/17 05:13 (Tylenol) 650 mg Q6H PRN PO 10/21/17 16:30 (Motrin) 600 mg Q6H PRN PO 10/21/17 16:30 10/23/17 05:11 (Percocet 5-325 Mg) 1 tab Q4H PRN PO 10/21/17 16:30 10/23/17 05:11 (Percocet 5-325 Mg) 2 tab Q4H PRN PO 10/21/17 16:30 (Cora-Colace) 2 tab Q12H PRN PO 10/21/17 16:30 10/22/17 19:30 (Ambien) 5 mg HS PRN PO 10/21/17 16:30 (Zofran Inj) 4 mg Q6H PRN IV PUSH 10/21/17 16:30 Assessment/Plan Problem List: (1) Placental abruption in third trimester ICD Codes: O45.93 - Premature separation of placenta, unspecified, third trimester (2) Bicornate uterus complicating ICD Codes: O34.00 - Maternal care for unspecified congenital malformation of uterus, unspecified trimester; Q51.3 - Bicornate uterus Status: Acute (3) Vaginal bleeding during , antepartum ICD Codes: O46.90 - Antepartum hemorrhage, unspecified, unspecified trimester Status: Acute Assessment and Plan 32 y/o female who is POD #2 s/p primary CXN complicated by bicornuate uterus, posterior placental abruption and vaginal bleeding. Afebrile. Leukocytosis noted. Care -Continue routine care. -Percocet and Motrin PRN pain. -Encouraged OOB. Advised pelvic rest for 6 wks. Will need a f/u appt. in 1 wk for incision check. -Plans vasectomy for her partner for contraception -Anticipate discharge 10/24/17 Placental Abruption -Large clot posterior noted on US 10/21 -CBC, Coags, D dimer: D dimer elevated -Betamethasone 12mg IM x 1 administered AM of 10/21 - section 10/[address] Fritz -H&H 10.8/32.7 on 10/22 -Asymptomatic this morning--no dizziness, fatigue, or pallor Dw Wander Rodriguez and Marizol Wood Discharge Planning 10/24/17 John Yoon MD R1 Oct 23, 2017 08:03
[2017-10-23] MEDS: DOCUSATE SODIUM 50 MG/SENNA 8.6 MG TAB PO PRN (09:29)
[2017-10-23] MEDS: SODIUM CHLORIDE 0.9% FLUSH 10 ML FLUSH IV FLUSH SCH (10:21)
[2017-10-23 20:00] VITALS: BP 134/69; PULSE 69; RESP 18; TEMP 98.3
[2017-10-24] MEDS: oxyCODONE/ACETAMINOPHEN 5 MG/325 MG TAB PO PRN (04:54)
[2017-10-24] MEDS: SIMETHICONE 80 MG CHEWABLE TAB PO PRN (04:57)
[2017-10-24 06:00] VITALS: BP 121/71; PULSE 79; RESP 16; TEMP 98.2
[2017-10-24] MEDS ORDERED: IBUP-232 PO (08:02)
[2017-10-24] MEDS ORDERED: OXYC1TAB63 PO (08:02)
[2017-10-24] MEDS ORDERED: PERI PO (08:02)
--- NOTE | 2017-10-24 08:03 | HHI.DCPOC ---
Discharge Care Plan Diagnosis: (1) Bicornate uterus complicating (2) Placental abruption in third trimester (3) delivery, delivered, current hospitalization Report Symptoms to Your Doctor -Temperature above 100.5 degrees -Redness, of incision or excessive or foul smelling drainage -Unusual pain or calf pain -Increased vaginal bleeding -Painful or difficulty urinating -Feelings of extreme sadness or anxiety after 2 weeks Goals to Promote Your Health * To prevent worsening of your condition and complications * To maintain your health at the optimal level Directions to Meet Your Goals Take your medications as prescribed Follow your dietary instruction Follow activity as directed Ensure plenty of rest for recovery Drink fluids for hydration Keep your appointments as scheduled Take your immunizations and boosters as scheduled If your symptoms worsen call your PCP, if no PCP go to Urgent Care Center or Emergency Room Smoking is Dangerous to Your Health. Avoid second hand smoke Call the 24-hour crisis hotline for domestic abuse at Jakob Hebert MD R2 Oct 24, 2017 08:03
--- NOTE | 2017-10-24 09:31 | HHI.OB ---
Subjective Remarks 32 yo POD 3 from repeat C/S at 33 weeks for placental abruption. Today feels well. Denies CP/SOB. VB light-moderate and decreasing. Walking, eating, urinating without issue. Passing gas, no BM yet. Objective Vitals/I&O Vital Signs Date Time Temp Pulse Resp B/P (MAP) Pulse Ox O2 Delivery O2 Flow Rate FiO2 10/24/17 06:00 98.2 79 16 121/71 (88) 10/23/17 20:00 98.3 10/23/17 20:00 69 18 134/69 (90) Result Diagram: 10/22/17 0613 Objective Remarks GENERAL: Well-nourished, well-developed patient in NAD lying in bed. CARDIOVASCULAR: Regular rate and rhythm without murmurs, gallops, or rubs. RESPIRATORY: Breath sounds equal bilaterally. No accessory muscle use. No increased WOB. ABDOMEN/GI: Abdomen soft, appropriately tender to palpation, bowel sounds present. No guarding. Incision: Clean, dry and intact. Pressure dressing. Fundus: Firm, non-tender at umbilicus. GENITOURINARY: Light to moderate bleeding. EXTREMITIES: No cyanosis or edema, non-tender, without signs of DVT. Medications and IVs Current Medications Medications (Trade) Dose Ordered Sig/Miki Route Start Time Stop Time Status Last Admin (NS Flush) 2 ml BID IV FLUSH 10/21/17 21:00 (NS Flush) 2 ml UNSCH PRN IV FLUSH 10/21/17 16:30 (Mylicon Chew) 80 mg QID PRN PO 10/21/17 16:30 10/24/17 04:57 (Tylenol) 650 mg Q6H PRN PO 10/21/17 16:30 (Motrin) 600 mg Q6H PRN PO 10/21/17 16:30 10/23/17 19:58 (Percocet 5-325 Mg) 1 tab Q4H PRN PO 10/21/17 16:30 10/24/17 04:54 (Percocet 5-325 Mg) 2 tab Q4H PRN PO 10/21/17 16:30 10/23/17 13:45 (Cora-Colace) 2 tab Q12H PRN PO 10/21/17 16:30 10/23/17 09:29 (Ambien) 5 mg HS PRN PO 10/21/17 16:30 (Zofran Inj) 4 mg Q6H PRN IV PUSH 10/21/17 16:30 Assessment/Plan Problem List: (1) Placental abruption in third trimester ICD Codes: O45.93 - Premature separation of placenta, unspecified, third trimester (2) Bicornate uterus complicating ICD Codes: O34.00 - Maternal care for unspecified congenital malformation of uterus, unspecified trimester; Q51.3 - Bicornate uterus Status: Acute Qualifiers: Qualified Codes: O34.00 - Maternal care for unspecified congenital malformation of uterus, unspecified trimester; Q51.3 - Bicornate uterus (3) Vaginal bleeding during , antepartum ICD Codes: O46.90 - Antepartum hemorrhage, unspecified, unspecified trimester Status: Acute Assessment and Plan 32 y/o female who is POD #3 s/p CXN at 33 weeks for placental abruption complicated by bicornuate uterus Afebrile. Leukocytosis noted. Care -Continue routine care. -Percocet and Motrin PRN pain. -Encouraged OOB. Advised pelvic rest for 6 wks. Will need a f/u appt. in 1 wk for incision check. -Plans vasectomy for her partner for contraception Placental Abruption -Large clot posterior noted on US 10/21 -CBC, Coags, D dimer: D dimer elevated -Betamethasone 12mg IM x 1 administered AM of 10/21 - section 10/[address] Fritz -H&H 10.8/32.7 on 10/22 -Asymptomatic this morning--no dizziness, fatigue, or pallor Dw Dr. Fritz Discharge Planning 10/24/17 Jakob Hebert MD R2 Oct 24, 2017 09:31
== END 2017-10-24 12:45 | disposition home or self-care (01) | DRG 765 ==
LOC: HOBED 07:37 → H2EA 09:25 → OBSVTOIN 09:25 → H1EA 19:10
PROVIDERS: ADMIT Obstetrics & Gynecology Obstetrics; ATTEND Obstetrics & Gynecology Obstetrics
PROC: 10D00Z1 Extraction of Products of Conception, Low, Open Approach (ICD-10-PCS; principal; 2017-10-21)
PROC: 0HB7XZZ Excision of Abdomen Skin, External Approach (ICD-10-PCS; 2017-10-21)
DX: O45.93 Premature separation of placenta, unspecified, third trimester (principal); O36.5930 Maternal care for other known or suspected poor fetal growth, third trimester, not applicable or unspecified; O34.03 Maternal care for unspecified congenital malformation of uterus, third trimester; Q51.3 Bicornate uterus; O34.219 Maternal care for unspecified type scar from previous cesarean delivery; D72.829 Elevated white blood cell count, unspecified; Z3A.33 33 weeks gestation of pregnancy; Z37.0 Single live birth
CPT/HCPCS: 59025; 76816; 76817; 76819; 76820; 76821; 80307; 81001; 82805; 85014; 85018; 85025; 85379; 85384; 85610; 85730; 86850; 86900; 86901; 88307; 90715; 94150; 96360; 96361; G0481; J0131; J0690; J0702; J1200; J1885; J2274; J2405; J2590; J7120